=== PATIENT | female | born 1995 | race Caucasian/White ===

== ENCOUNTER 2017-10-11 14:36 | Emergency (ER) | payer MEDICAID ==
[~2017-10-11] VITALS: Ht 175.3 cm; Wt 145.1 kg
[2017-10-11 14:40] VITALS: BP_SYST 150
[2017-10-11] MEDS ORDERED: DIAZEPAM 10 MG/2 ML DISP.SYRIN IM ONE ×3 (15:00→16:00)
[2017-10-11] MEDS ORDERED: KETOROLAC TROMETHAMINE 30 MG VIAL IM ONE (15:00)
[2017-10-11 15:22] LABS: BILIRUBIN,URINE NEGATIVE (NEGATIVE); CLARITY/URINE CLEAR (CLEAR); COLOR,URINE YELLOW (YELLOW); GLUCOSE,URINE NEGATIVE (NEGATIVE); KETONES,URINE NEGATIVE (NEGATIVE); LEUKOCYTE ESTERASE ,URINE NEGATIVE (NEGATIVE); NITRITE, URINE NEGATIVE (NEGATIVE); PROTEIN URINE TRACE (NEGATIVE); UROBILINOGEN,URINE 0.2 (0.2-1.0)
[2017-10-11 15:26] LABS: BLOOD, URINE TRACE (NEGATIVE)
[2017-10-11 15:43] LABS: BACTERIA,URINE RARE /HPF (None Seen); RBC,URINE 0-3 /HPF (0-3); WBC,URINE 0-3 /HPF (0-3)
[2017-10-11 15:44] LABS: MUCUS,URINE None Seen /LPF (None Seen); YEAST,URINE None Seen /HPF (None Seen)
[2017-10-11] MEDS ORDERED: HYDROcodone/ACETAMIN 5-325 MG TAB (NORCO/ VICODIN) PO ONE (16:30)
[2017-10-11 16:52] VITALS: BP_SYST 148
== END 2017-10-11 16:52 | disposition home or self-care (01) ==
LOC: SED 14:36
DX: S39.012A Strain of muscle, fascia and tendon of lower back, initial encounter (principal); X58.XXXA Exposure to other specified factors, initial encounter; Y93.67 Activity, basketball; Y92.218 Other school as the place of occurrence of the external cause; Y99.8 Other external cause status
CPT/HCPCS: 72100; 81000; 81025; 96372; 99285; J1885; J3360